=== PATIENT | female | born 1995 | race Caucasian/White ===

== ENCOUNTER → 2025-08-10 | Outpatient (CLI) | payer OTHER ==
[2025-08-10 13:33] LABS: PLATELET COUNT, AUTOMATED 241 10^3/uL (150-450)
[2025-08-10 14:04] LABS: LDH LACTATE DEHYDROGENASE 134 U/L (120-246)
[2025-08-10 14:25] LABS: HIV 1&2 SCREEN NEGATIVE (NEGATIVE)
[2025-08-10 14:32] LABS: HEPATITIS C VIRUS ABY INDEX < 0.02 INDEX (<0.8)
[2025-08-10 14:42] LABS: Trichomonas vaginalis (AMP) NOT DETECTED (NEGATIVE)
[2025-08-10 14:51] LABS: ALT/SGPT < 9 U/L (7.0-40); AST/SGOT 16 U/L (<34); CREATININE FOR GFR 0.65 MG/DL (0.55-1.30); GLOMERULAR FILTRATION RATE > 90.0 (>60)
[2025-08-10 15:05] LABS: GC DNA AMPLIFICATION NEGATIVE (NEGATIVE)
[2025-08-11 16:50] LABS: TOTAL PROTEIN,RANDOM URINE 6.5 MG/DL (0.0-14.0)
== END ==
LOC: M PLALAB 11:41
PROVIDERS: ATTEND Student in an Organized Health Care Education/Training Program
DX: Z34.80 Encounter for supervision of other normal pregnancy, unspecified trimester (principal)

== ENCOUNTER → 2025-08-24 | Outpatient (CLI) | payer OTHER ==
[2025-08-24 13:51] LABS: FREE T4 1.47 NG/DL (0.89-1.76)
== END ==
LOC: M PLALAB 10:59
PROVIDERS: ATTEND Student in an Organized Health Care Education/Training Program
DX: O99.280 Endocrine, nutritional and metabolic diseases complicating pregnancy, unspecified trimester (principal); E03.8 Other specified hypothyroidism; Z3A.00 Weeks of gestation of pregnancy not specified

== ENCOUNTER → 2025-10-05 | Outpatient (CLI) | payer OTHER | LOC: M PLALAB 12:01 | PROVIDERS: ATTEND Obstetrics & Gynecology | DX: O99.280 Endocrine, nutritional and metabolic diseases complicating pregnancy, unspecified trimester (principal); Z3A.00 Weeks of gestation of pregnancy not specified ==